=== PATIENT | female | born 1990 | race Caucasian/White ===

== ENCOUNTER 2016-09-28 11:16 | Observation (INO) | payer MEDICAID ==
[~2016-09-28] VITALS: Ht 160 cm; Wt 82.8 kg
[~2016-09-28 11:16] MED LIST: PNV11TAB PO
[2016-09-28 11:31] VITALS: BP 113/71
[2016-09-28] MEDS ORDERED: AMOX-291 PO (11:49)
[2016-09-28] MEDS ORDERED: METH40TA3 PO (11:49)
[2016-09-28] MEDS ORDERED: HYDR-3240 PO (11:50)
[2016-09-28] MEDS ORDERED: METHADONE 10 MG TABLET PO ONE (12:30)
[2016-09-28] MEDS ORDERED: METHADONE 10 MG TABLET ONE ×2 (12:32→14:57)
[2016-09-28 13:43] LABS: HEMATOCRIT 42.6 % (34.6-47.8); HEMOGLOBIN 13.9 g/dL (11.7-16.4); WHITE BLOOD COUNT 15.5 x10^3/uL (3.4-10)
[2016-09-28 13:50] LABS: BLOOD UREA NITROGEN 7 mg/dL (7-18)
[2016-09-28 13:53] LABS: ASPARTATE AMINO TRANSFERASE 26 U/L (15-37)
[2016-09-28] MEDS ORDERED: BISACODYL 10 MG SUPP ONE (14:57)
[2016-09-28] MEDS: MAGNESIUM HYDROXIDE 8%, 30ML UDC PO SCH (14:59)
[2016-09-28] MEDS ORDERED: METHYLNALTREXONE 12 MG/0.6 ML SQ ONE (16:30)
[2016-09-28] MEDS: METHADONE 10 MG TABLET PO SCH (18:09)
[2016-09-28 18:45] VITALS: BP 127/83
[2016-09-28] MEDS ORDERED: ACETAMINOPHEN 325 MG TABLET PO PRN (19:00)
[2016-09-28 21:28] VITALS: BP 138/84
[2016-09-29 00:53] VITALS: BP 119/79
[2016-09-29] MEDS: METHADONE 10 MG TABLET PO SCH ×4 (00:53→18:43)
[2016-09-29 05:29] LABS: WHITE BLOOD COUNT 17.4 x10^3/uL (3.4-10)
[2016-09-29 06:46] VITALS: BP 128/84
[2016-09-29] MEDS: SODIUM CHLORIDE 0.9% 1,000 ML IV SCH ×2 (07:00→18:21)
[2016-09-29] MEDS ORDERED: BISACODYL 10 MG SUPP PR ONE (09:00)
[2016-09-29] MEDS ORDERED: LACTULOSE 20 GM/30 ML UDC PO PRN (09:30)
[2016-09-29] MEDS: MAGNESIUM HYDROXIDE 8%, 30ML UDC PO SCH ×2 (09:40→10:30)
[2016-09-29] MEDS ORDERED: ONDANSETRON 2MG/ML, 2ML ONE (09:45)
[2016-09-29] MEDS ORDERED: ONDANSETRON 2MG/ML, 2ML IVPush PRN (10:00)
[2016-09-29 12:23] VITALS: BP 116/74
[2016-09-29] MEDS ORDERED: PINK LADY ENEMA 1,000 ML PR ONE (13:00)
== END 2016-09-29 20:04 | disposition home or self-care (01) ==
LOC: LDOP 11:16 → LDIP 13:52 → 4WST 15:45
PROVIDERS: ADMIT Obstetrics & Gynecology; ATTEND Obstetrics & Gynecology
DX: O99.323 Drug use complicating pregnancy, third trimester (principal); F11.20 Opioid dependence, uncomplicated; O26.893 Other specified pregnancy related conditions, third trimester; K59.03 Drug induced constipation; O99.333 Smoking (tobacco) complicating pregnancy, third trimester; F17.200 Nicotine dependence, unspecified, uncomplicated; O99.113 Other diseases of the blood and blood-forming organs and certain disorders involving the immune mechanism complicating pregnancy, third trimester; D72.829 Elevated white blood cell count, unspecified; T40.2X5A Adverse effect of other opioids, initial encounter; Y92.89 Other specified places as the place of occurrence of the external cause; Z3A.35 35 weeks gestation of pregnancy
CPT/HCPCS: 36415; 59025; 74020; 80053; 85025; 96360; 96361; 96372; G0378; J2212; J7030